=== PATIENT | female | born 1950 | race Native Hawaiian/Other Pacific Islander ===

== ENCOUNTER 2017-05-23 17:00 | Outpatient (CLI) | payer OTHER ==
[2017-05-23 18:32] LABS: PLATELET COUNT 312 K/uL (152-353)
[2017-05-23 19:33] LABS: POTASSIUM 4.3 mmol/L (3.6-5.2)
== END 2017-05-23 18:00 | disposition home or self-care (01) ==
LOC: LAB 17:00
PROVIDERS: Nurse Practitioner Family
DX: Z00.00 Encounter for general adult medical examination without abnormal findings (principal); R53.81 Other malaise; R53.83 Other fatigue; E78.00 Pure hypercholesterolemia, unspecified; R79.89 Other specified abnormal findings of blood chemistry
CPT/HCPCS: 80053; 80061; 83036; 84436; 84443; 85027

== ENCOUNTER 2017-07-25 09:28 | Outpatient (CLI) | payer OTHER, BC | END 2017-07-25 19:13 | disposition home or self-care (01) | LOC: MAMMO 09:28 | DX: Z12.31 Encounter for screening mammogram for malignant neoplasm of breast (principal); Z13.820 Encounter for screening for osteoporosis; Z87.891 Personal history of nicotine dependence; M81.8 Other osteoporosis without current pathological fracture; M85.88 Other specified disorders of bone density and structure, other site ==

== ENCOUNTER 2018-08-26 13:47 | Outpatient (CLI) | payer OTHER, BC | END 2018-08-26 23:16 | disposition home or self-care (01) | LOC: MAMMO 13:47 → RAD 13:47 → MAMMO 14:00 | DX: Z12.31 Encounter for screening mammogram for malignant neoplasm of breast (principal); Z72.0 Tobacco use ==